=== PATIENT | female | born 1940 | race Caucasian/White ===

== ENCOUNTER 2016-10-11 14:32 | Emergency (ER) | payer MEDICARE, OTHER ==
--- NOTE | ~2016-10-11 | CR172 ---
[facility] A Service [facility] RADIOLOGY TEXT RESULTS PATIENT: LULA LEÓN LOCATION: [place] : 36 UNIT #: [id number] AGE: [address]: BREONNA TRACEY SEX: F ORDER DR: [id number] [facility]. [place], [place] [address] [id number] MR#: [id number] #: [id number] NAME: LULA LEÓN : 1940 SEX: F STUDY DATE/TIME: 10/11/2016 14:04 UNIT: [facility] ROOM: STUDY DESCRIPTION: CR Knee 3 Views Lt Attending Physician: Breonna Tracey Aprn Ordering Physician: Breonna Tracey Aprn Primary Care Physician: Kalyani Teran Aprn MEDICAL IMAGING REPORT This report is preliminary unless electronic signature is present EXAM Left knee series, 10/11/2016 HISTORY Trauma. Fall onto left knee. Pain and swelling left knee. Happened today. TECHNIQUE AP, lateral and sunrise views of the left knee are presented. COMPARISON STUDIES None. FINDINGS No traumatic fracture or malalignment. Mild narrowing of the joint spaces. Evidence of prominent varicose veins medial aspect of the visualized foreleg. There is soft tissue swelling along the anterior infrapatellar soft tissues. Correlate with exam. No soft tissue defect, subcutaneous air or radiodense foreign body. Dictated by... Panda Sams M.D. THIS IS AN ELECTRONICALLY VERIFIED REPORT Panda Sams M.D. at 10/12/2016 2:37 PM HOME/barry TD: 10/11/2016 16:38 JOB #: [id number] [facility] A Service of [facility] RADIOLOGY TEXT RESULTS PATIENT: LULA LEÓN LOCATION: [place] : 36 UNIT #: [id number] AGE: [address]: BREONNA TRACEY SEX: F ORDER DR: MEDICAL IMAGING REPORT Page 1 of 1 COPY
[~2016-10-11 14:32] MED LIST: COREG3.125 MG PO; OMEPRAZOLE20 M2 PO; SYSTANE 0.3-0.415 ML OP
== END 2016-10-11 15:10 | disposition home or self-care (01) ==
LOC: CFTX 14:32
DX: S80.02XA Contusion of left knee, initial encounter (principal); I10 Essential (primary) hypertension; J44.9 Chronic obstructive pulmonary disease, unspecified; Z23 Encounter for immunization; W19.XXXA Unspecified fall, initial encounter; Y92.9 Unspecified place or not applicable
CPT/HCPCS: 73562; 90471; 90715; 99283